=== PATIENT | female | born 1975 | race Caucasian/White ===

== ENCOUNTER 2016-05-28 20:53 | Emergency (ER) | payer BC, MEDICARE ==
[~2016-05-28] VITALS: Ht 177.8 cm; Wt 72.1 kg
[~2016-05-28 20:53] MED LIST: CYCL-375 PO; DESV50TA; FLUT16SP2 EA NOSTRIL; GLIM4TAB PO; LORA-204 PO; METF-462 PO; METO-230 PO; METO-277 PO; OXYC-426; OXYC1TAB13 PO; PROM25SU58; ROSU10TA PO
--- OUTSIDE RECORDS SUMMARY | 2016-05-28 20:56 | XMS REPORT | Summary of Care ---
Author Author Teresa Lowery Organization Unknown Address [address] [place], [place] [id number] Phone Unavailable Care Team Providers Care Machine Bander And Cellophaner Helper Name Role Phone Teresa Lowery Unavailable Unavailable Perri Read Unavailable Unavailable Unavailable Unavailable Functional Status Name Dates Details Functional status health issues are not documented Status: Name Dates Details Cognitive status health issues are not documented Status: Problems Name Dates Details Difficulty breathing (786.09, R06.89) Status: Active Polycystic ovarian syndrome (256.4, E28.2) Status: Active Type 2 diabetes mellitus (250.00, E11.9) Status: Active Allergic rhinitis (477.9, J30.9) Status: Active Asthma (493.90, J45.909) Status: Active Hypertension (401.9, I10) Status: Active Depression (311, F32.9) Status: Active Anxiety (300.00, F41.9) Status: Active Menorrhagia (626.2, N92.0) Status: Active Medications Name Dates Details Ativan 1 MG Oral Tablet 1-2 tablets every 8 hours prn anxiety * Start 09-May-2009 Active PriLOSEC 20 MG Oral Capsule Delayed Release * Refills: 0 Kempke, Teresa * Start 07-Feb-2016 Active Percocet 10-325 MG Oral Tablet * Refills: 0 KempkeTeresa * Start 07-Feb-2016 Active Butrans 15 MCG/HR Transdermal Patch Weekly * Refills: 0 Kempke, Teresa * Start 07-Feb-2016 Active CeleXA 10 MG Oral Tablet * Refills: 0 KempkeTeresa * Start 07-Feb-2016 Active Allergies and Adverse Reactions Name Dates Details Aspirin TABS (Allergy) Status: Active Lortab TABS (Allergy) Status: Active Past Medical History Name Dates Details History of migraine (V12.49, Z86.69) Status: Resolved History of vaginal delivery (V13.29) Status: Resolved Procedures Procedure Dates Details History of Appendectomy History of Tubal Ligation History of Section History of Back Surgery History of Gastroduodenostomy OB Dept- Ultrasound Pelvic Sonogram Ordered: 08-Feb-2016 Immunization Name Dates Details Immunizations not documented Family History Name Dates Details Family history of hypertension (V17.49, Z82.49) Comments: Family History Status: Active Family history of Endometrial cancer (182.0, C54.1) Comments: Family History Status: Active Name Dates Details Family history of cerebrovascular accident (CVA) (V17.1, Z82.3) Status: Active Family history of hypertension (V17.49, Z82.49) Status: Active Name Dates Details Family history of blood clots (V18.3, Z82.49) Status: Active Social History Name Dates Details - Status: Name Dates Details Former smoker Never smoker Vital Signs Date Test Result Details 21-Feb-2016 11:42 BP Systolic 124 mm[Hg] Status: Comments: Location: ; Position: BP Diastolic 70 mm[Hg] Status: Comments: Location: ; Position: Weight 159 lb Status: Body Mass Index Calculated 22.98 kg/m2 Status: Body Surface Area Calculated 1.89 m2 Status: 07-Feb-2016 15:30 BP Systolic 120 mm[Hg] Status: Comments: Location: ; Position: BP Diastolic 62 mm[Hg] Status: Comments: Location: ; Position: Height 69.75 in Status: Weight 163 lb Status: Body Mass Index Calculated 23.56 kg/m2 Status: Body Surface Area Calculated 1.91 m2 Status: Results Date Description Value Details 21-Feb-2016 11:50 URINE TEST 8010 URINE TEST Negative Range: Negative Comments: Internal Control: Acceptable----- 12:38 OB Dept- Ultrasound Endovag Pelvic Sonogram Comments: Exam Date: 02/20 10:28Dictation Date: 02/21/2016 12:38 XOB EV SONO Plan of Care Name Dates Details Planned Observations Planned Goals not documented Instructions Name Dates Details Instructions not documented Encounters Appointment; Teresa Lowery Encounter Diagnosis: Problem not documented On 21-Feb-2016 11:00 Appointment; Teresa Lowery Encounter Diagnosis: Problem not documented On 07-Feb-2016 14:00
--- OUTSIDE RECORDS SUMMARY | 2016-05-28 20:56 | XMS REPORT | Summary of Care ---
Author Author Teresa Lowery Organization Unknown Address [address] [place], [place] [id number] Phone Unavailable Care Team Providers Care Mis Specialist Name Role Phone Teresa Lowery Unavailable Unavailable [...]
--- OUTSIDE RECORDS SUMMARY | 2016-05-28 20:56 | XMS REPORT | Summary of Care ---
Author Author [facility] Organization [facility] Address [address] [place] [address] Phone Care Team Providers Care Social Security Specialist Name Role Phone [employer] CNM, User Unavailable Unavailable Teresa Lowery Unavailable Unavailable Slechta, Perri Unavailable Unavailable Unavailable Unavailable Functional Status Name [...] 10-325 MG Oral Tablet * Refills: 0 Kempke, Teresa * Start 07-Feb-2016 Active Butrans 15 MCG/HR Transdermal Patch Weekly * Refills: 0 Kempke, Teresa * Start 07-Feb-2016 Active CeleXA 10 MG Oral Tablet * Refills: 0 KempkeLanceTeresa * Start 07-Feb-2016 Active Allergies and Adverse Reactions Name Dates Details Aspirin TABS (Allergy) Status: Active Lortab TABS (Allergy) Status: Active Past Medical History Name Dates Details History of migraine (V12.49, Z86.69) Status: Resolved History of vaginal delivery (V13.29) Status: Resolved Procedures Procedure Dates Details History of Appendectomy History of Tubal Ligation History of Section History of Back Surgery History of Gastroduodenostomy URINE TEST 8010 Ordered: 14-Feb-2016 OB Dept- Ultrasound Pelvic Sonogram Ordered: 08-Feb-2016 [...] smoker Vital Signs Date Test Result Details 07-Feb-2016 15:30 BP Systolic 120 mm[Hg] Status: Comments: Location: ; Position: BP Diastolic 62 mm[Hg] Status: Comments: Location: ; Position: Height 69.75 in Status: Weight 163 lb Status: Body Mass Index Calculated 23.56 kg/m2 Status: Body Surface Area Calculated 1.91 m2 Status: Results Date Description Value Details Results not documented Plan of Care Name Dates Details Planned Observations Planned Goals not documented Planned Encounters Appointment; Provider: Teresa Lowery On 21-Feb-2016 11:00 Instructions Name Dates Details Instructions not documented Encounters Appointment; Teresa Lowery Encounter Diagnosis: Problem not documented On 07-Feb-2016 14:00
--- OUTSIDE RECORDS SUMMARY | 2016-05-28 20:56 | XMS REPORT | Summary of Care ---
Author Author Teresa Lowery Organization Unknown Address [address] [place], [place] [id number] Phone Unavailable Care Team Providers Care Transportation Maintenance Operator Name Role Phone Teresa Lowery Unavailable Unavailable [...] Status: Active Anxiety (300.00, F41.9) Status: Active Screening for breast cancer (V76.10, Z12.39) Status: Active Menorrhagia (626.2, N92.0) Status: Active Medications Name Dates Details Ativan 1 MG Oral Tablet 1-2 tablets every 8 hours prn anxiety * Start 09-May-2009 Active PriLOSEC 20 MG CPDR * Refills: 0 Teresa Lowery * Start 07-Feb-2016 Active Percocet 10-325 MG Oral Tablet * Refills: 0 Teresa Lowery * Start 07-Feb-2016 Active Butrans 15 MCG/HR Transdermal Patch Weekly * Refills: 0 Teresa Lowery * Start 07-Feb-2016 Active CeleXA 10 MG Oral Tablet * Refills: 0 Teresa Lowery * Start 07-Feb-2016 Active Tylenol with Codeine #3 300-30 MG Oral Tablet TAKE 1 TO 2 TABLETS EVERY [address] PAIN. [address] Lowery * Quantity: 30 Refills: 0 * Start 22-Mar-2016 Active Allergies and Adverse Reactions Name Dates [...] OB Dept- Ultrasound Pelvic Sonogram Ordered: 08-Feb-2016 MAMMOGRAM-SCREENING Ordered: 08-Mar-2016 Immunization Name Dates Details Immunizations not documented [...] smoker Vital Signs Date Test Result Details 05-Apr-2016 09:23 BP Systolic 124 mm[Hg] Status: Comments: Location: ; Position: BP Diastolic 80 mm[Hg] Status: Comments: Location: ; Position: Heart Rate 68 /min Status: Comments: Location: ; Weight 156 lb Status: Body Mass Index Calculated 22.55 kg/m2 Status: Body Surface Area Calculated 1.87 m2 Status: 13-Mar-2016 10:24 BP Systolic 112 mm[Hg] Status: Comments: Location: ; Position: BP Diastolic 68 mm[Hg] Status: Comments: Location: ; Position: Heart Rate 74 /min Status: Comments: Location: ; Weight 157 lb Status: Body Mass Index Calculated 22.69 kg/m2 Status: Body Surface Area Calculated 1.88 m2 Status: Results Date Description Value Details Results not documented Plan of Care Name Dates Details Planned Observations Planned Goals not documented Planned Encounters Appointment; Provider: Teresa Lowery On 01-May-2016 13:00 Appointment; Provider: Schedule Radiology On 05-Apr-2016 10:50 Instructions Name Dates Details Instructions not documented Encounters Appointment; Teresa Lowery Encounter Diagnosis: Problem not documented On 22-Mar-2016 07:00 Appointment; Teresa Lowery Encounter Diagnosis: Problem not documented On 13-Mar-2016 10:15 Appointment; Tersea Lowery Encounter Diagnosis: Problem not documented On 21-Feb-2016 11:00 Appointment; Teresa Lowery Encounter Diagnosis: Problem not documented On 07-Feb-2016 14:00
--- OUTSIDE RECORDS SUMMARY | 2016-05-28 20:56 | XMS REPORT | Continuity of Care Document ---
Demographics Preferred Language Unknown Marital Status Unknown Confucianist Affiliation Unknown Race Unknown Ethnic Group Unknown Author Author [facility] Organization [facility] Address Unknown Phone Unavailable Allergies Medications Problems Procedures Results Encounters ACCT No. Visit Date/Time Discharge Status Pt. Type Provider Facility Loc./Unit Complaint [id number] 10/19/2013 10:37:00 ACT Unknown [id number] 06/29/2013 08:16:00 ACT Unknown [id number] 03/10/2013 10:16:00 ACT Unknown [id number] 02/27/2013 09:34:00 ACT Unknown [id number] 02/02/2013 10:08:00 ACT Unknown
--- OUTSIDE RECORDS SUMMARY | 2016-05-28 20:57 | XMS REPORT | Referral Summary ---
Author Author [facility] Organization [facility] Address Unknown Phone Unavailable Care Team Providers Care Architectural Associate Name Role Phone No PCP, Pt States Primary Care Physician [phone] Encounter VC Date(s): 04/28/15 - 04/28/15 [facility] [address] [place], [place] [address] Discharge Disposition: 01-Home or Self Care Attending Physician: Carter Couch MD Vital Signs No data available for this section Problem List Condition Effective Dates Status Health Status Informant Asthma(Confirmed) Active patient Chronic back Active patient pain(Confirmed) Diabetes(Confirmed) Active patient Heartburn(Confirmed) Active patient Obesity(Confirmed) Active patient Pneumonia(Confirmed) Active patient Tachycardia(Confirme Active patient d) Allergies, Adverse Reactions, Alerts Substance Reaction Severity Status aspirin1 Vomiting and nausea Severe Active HYDROcodone2 Migraines Severe Active Symbicort Throat swelling Severe Active 1N/V, BLOODY STOOLS 2ABLE TO TAKE ACETAMINOPHEN WITHOUT MIGRAINES. Medications albuterol 90 mcg/inh inhalation powder 2 puffs, Inhalation, q4hr, Shortness of Breath/Wheezing, 0 Refill(s) Start Date: 04/28/15 Status: Ordered Amaryl 4 mg oral tablet 4 mg 1 tabs, Oral, BID, 0 Refill(s) Start Date: 04/28/15 Status: Ordered CeleXA 20 mg oral tablet 20 mg 1 tabs, Oral, Daily, 0 Refill(s) Start Date: 04/28/15 Status: Ordered metFORMIN 500 mg oral tablet 500 mg 1 tabs, Oral, BID, 0 Refill(s) Start Date: 04/28/15 Status: Ordered metoprolol succinate 50 mg oral tablet, extended release 50 mg 1 tabs, Oral, Daily, TAKES AFTER SUPPER MEAL, 0 Refill(s) Start Date: 04/28/15 Status: Ordered Percocet 10/325 oral tablet 1 tabs, Oral, TID, as needed for pain, # 10 tabs, 0 Refill(s) Start Date: 04/28/15 Status: Ordered PriLOSEC 20 mg oral delayed release capsule 20 mg 1 caps, Oral, Daily, 0 Refill(s) Start Date: 04/28/15 Status: Ordered Zocor 20 mg oral tablet 20 mg 1 tabs, Oral, Bedtime (once a day), 0 Refill(s) Start Date: 04/28/15 Status: Ordered Results Hematology Most recent to 1 oldest [Reference Range]: WBC [4.8-10.8 8.7 10*3/uL 10*3/uL] (04/28/15 2:27 PM) RBC [4.00-5.20] 4.81 (04/28/15 2:27 PM) Hgb [12.0-16.0 13.9 gm/dL gm/dL] (04/28/15 2:27 PM) Hct [37.0-47.0 %] 41.8 % (04/28/15 2:27 PM) MCV [82.0-99.0 fL] 86.9 fL (04/28/15 2:27 PM) MCH [27.0-32.0 pg] 28.9 pg (04/28/15 2:27 PM) MCHC [32.0-36.0 33.3 gm/dL gm/dL] (04/28/15 2:27 PM) RDW [11.5-14.5 %] 13.0 % (04/28/15 2:27 PM) Platelet [150-400 291 10*3/uL 10*3/uL] (04/28/15 2:27 PM) MPV [9.4-12.4 fL] 9.6 fL (04/28/15 2:27 PM) Immature 0.2 % Granulocytes (04/28/15 2:27 PM) [0.0-1.0 %] Neutrophils [51-75 50 % %] *LOW* (04/28/15 2:27 PM) Lymphocytes [20-46 42 % %] (04/28/15 2:27 PM) Monocytes [4-11 %] 7 % (04/28/15 2:27 PM) Eosinophils [0-4 %] 1 % (04/28/15 2:27 PM) Basophils [0-2 %] 0 % (04/28/15 2:27 PM) Neutro Absolute 4.33 10*3 [1.90-7.00 10*3] (04/28/15 2:27 PM) Lymph Absolute 3.63 10*3 [0.80-3.30 10*3] *HI* (04/28/15 2:27 PM) Coffee Absolute 0.60 10*3 [0.30-1.00 10*3] (04/28/15 2:27 PM) Eos Absolute 0.09 10*3 [0.00-0.50 10*3] (04/28/15 2:27 PM) Baso Absolute 0.01 10*3 [0.00-0.20 10*3] (04/28/15 2:27 PM) Chemistry Most recent to 1 oldest [Reference Range]: Sodium Lvl [136-144 136 mEq/L mEq/L] (04/28/15 2:27 PM) Potassium Lvl 3.9 mEq/L [3.6-5.1 mEq/L] (04/28/15 2:27 PM) Chloride [99-109 101 mEq/L mEq/L] (04/28/15 2:27 PM) CO2 [22-32 mEq/L] 26 mEq/L (04/28/15 2:27 PM) AGAP [3-20] 9 (04/28/15 2:27 PM) BUN [4-20 mg/dL] 10 mg/dL (04/28/15 2:27 PM) Glucose Lvl [70-100 78 mg/dL mg/dL] (04/28/15 2:27 PM) Creatinine Lvl 0.65 mg/dL [0.44-1.03 mg/dL] (04/28/15 2:27 PM) eGFR [>60] >60 1 (04/28/15 2:27 PM) Calcium Lvl 9.9 mg/dL [8.6-10.0 mg/dL] (04/28/15 2:27 PM) Albumin Lvl [3.5-4.8 4.6 gm/dL gm/dL] (04/28/15 2:27 PM) Total Protein 7.4 gm/dL [6.1-7.9 gm/dL] (04/28/15 2:27 PM) Globulin [1.9-4.3 2.8 gm/dL gm/dL] (04/28/15 2:27 PM) ALT [14-54 U/L] 49 U/L (04/28/15 2:27 PM) AST [15-41 U/L] 32 U/L (04/28/15 2:27 PM) Alk Phos [26-104 66 U/L U/L] (04/28/15 2:27 PM) Bili Total [0.2-1.2 0.5 mg/dL 2 mg/dL] (04/28/15 2:27 PM) U Beta hCG Ql Negative (04/28/15 2:27 PM) 1Result Comment: Multiply eGFR results by 1.21 for race. 2Result Comment: Naproxen, specifically the metabolite O-desmethylnaproxen, may cause spurious elevation in Total Bilirubin levels. Immunizations No data available for this section Procedures Procedure Date Related Diagnosis Body Site Collection of venous blood by venipuncture 04/28/15 Appendectomy C SECTION Cervical fusion syndrome Laryngoscopy LUMBAR FUSION Tubal ligation Social History Social History Type Response Smoking Status Former smoker Assessment and Plan No data available for this section
--- OUTSIDE RECORDS SUMMARY | 2016-05-28 20:57 | XMS REPORT | Summary of Care ---
Author Author Teresa Lowery Organization Unknown Address [address] [place], [place] [id number] Phone Unavailable Care Team Providers Care Pari Mutuel Clerk Name Role Phone Teresa Lowery Unavailable Unavailable [...] Status: Active Menorrhagia (626.2, N92.0) Status: Active Preoperative exam for gynecologic surgery (V72.83, Z01.818) Status: Active Screening for breast cancer (V76.10, Z12.39) Status: Active Medications Name Dates Details Ativan 1 MG Oral Tablet 1-2 tablets every 8 hours prn anxiety * Start 09-May-2009 Active PriLOSEC 20 MG CPDR * Refills: 0 Teresa Lowery * Start 07-Feb-2016 Active Percocet 10-325 MG Oral Tablet * Refills: 0 KempkeLanceTeresa * Start 07-Feb-2016 Active Butrans 15 MCG/HR Transdermal Patch Weekly * Refills: 0 Teresa Lowery * Start 07-Feb-2016 Active CeleXA 10 MG Oral Tablet * Refills: 0 Teresa Lowery * Start 07-Feb-2016 Active Allergies and Adverse Reactions Name Dates Details Aspirin TABS (Allergy) Status: Active Lortab TABS (Allergy) Status: Active Past Medical History Name Dates Details History of migraine (V12.49, Z86.69) Status: Resolved History of vaginal delivery (V13.29) Status: Resolved Procedures Procedure Dates Details History of Appendectomy History of Tubal Ligation History of Section History of Back Surgery History of Gastroduodenostomy MAMMOGRAM-SCREENING Ordered: 08-Mar-2016 OB Dept- Ultrasound Pelvic Sonogram Ordered: 08-Feb-2016 [...] Goals not documented Planned Encounters Appointment; Provider: Schedule Radiology On 05-Apr-2016 10:50 Appointment; Provider: Teresa Lowery On 05-Apr-2016 09:00 Appointment; Provider: Teresa Lowery On 22-Mar-2016 07:00 Appointment; Provider: Teresa Lowery On 13-Mar-2016 10:15 Instructions Name Dates Details Instructions not documented Encounters Appointment; Teresa Lowery Encounter Diagnosis: Problem not documented On 21-Feb-2016 11:00 Appointment; Teresa Lowery Encounter Diagnosis: Problem not documented On 07-Feb-2016 14:00
--- OUTSIDE RECORDS SUMMARY | 2016-05-28 20:57 | XMS REPORT | Referral Summary ---
Author Author [facility] Organization [facility] Address Unknown Phone Unavailable Care Team Providers Care Solution Make Up Operator Name Role Phone No PCP, States Primary Care Physician [phone] Encounter VC Date(s): 05/02/15 - 05/03/15 [facility] [address] [place] [address] Discharge Diagnosis: Morbid obesity Discharge Disposition: 01-Home or Self Care Attending Physician: Carter Couch MD Admitting Physician: Carter Couch MD Vital Signs Most recent to 1 oldest [Reference Range]: Temperature Oral 36.7 degC [35.8-37.3 degC] (05/03/15 12:30 PM) Temperature Skin 36.2 degC [36-37 degC] (05/02/15 9:15 AM) Temperature Temporal 36.2 degC Artery [36.3-37.8 *LOW* degC] (05/02/15 12:55 PM) Peripheral Pulse 67 bpm Rate [60-100 bpm] (05/03/15 12:30 PM) Heart Rate Monitored 57 bpm [60-100 bpm] *LOW* (05/02/15 1:45 PM) Respiratory Rate 18 br/min [14-20 br/min] (05/03/15 12:30 PM) Blood Pressure 108/69 mmHg [90-140/60-90 mmHg] (05/03/15 12:30 PM) Mean Arterial 86 mmHg Pressure, Cuff (05/02/15 1:45 PM) SpO2 94 % (05/03/15 1:59 PM) Problem List Condition Effective Dates Status Health Status Informant Acute Active pain(Confirmed) Asthma(Confirmed) Active patient Chronic back Active patient pain(Confirmed) Diabetes(Confirmed) Active patient Heartburn(Confirmed) Active patient Impaired skin Active integrity(Confirmed) 1 Obesity(Confirmed) Active patient Pneumonia(Confirmed) Active patient Tachycardia(Confirme Active patient d) 1Problem added automatically by system based on initiation of Impaired Skin Integrity Plan of Care Allergies, Adverse Reactions, Alerts Substance Reaction Severity [...] 0 Refill(s) Start Date: 04/28/15 Status: Ordered omeprazole 2 mg/mL oral suspension 20 mg, Oral, Daily, # 300 mL, 3 Refill(s), 20mg per day for indefinite time period. Start Date: 05/03/15 Status: Ordered PriLOSEC 20 mg oral delayed release capsule 20 mg 1 caps, Oral, Daily, # 30 caps, 3 Refill(s) Start Date: 05/03/15 Status: Ordered Zocor 20 mg oral tablet 20 mg 1 tabs, Oral, Bedtime (once a day), 0 Refill(s) Start Date: 04/28/15 Status: Ordered Results Hematology Most recent to 1 oldest [Reference Range]: WBC [4.8-10.8 9.8 10*3/uL 10*3/uL] (05/03/15 5:37 AM) RBC [4.00-5.20] 4.24 (05/03/15 5:37 AM) Hgb [12.0-16.0 11.8 gm/dL gm/dL] *LOW* (05/03/15 5:37 AM) Hct [37.0-47.0 %] 36.6 % *LOW* (05/03/15 5:37 AM) MCV [82.0-99.0 fL] 86.3 fL (05/03/15 5:37 AM) MCH [27.0-32.0 pg] 27.8 pg (05/03/15 5:37 AM) MCHC [32.0-36.0 32.2 gm/dL gm/dL] (05/03/15 5:37 AM) RDW [11.5-14.5 %] 12.9 % (05/03/15 5:37 AM) Platelet [150-400 215 10*3/uL 10*3/uL] (05/03/15 5:37 AM) MPV [9.4-12.4 fL] 9.7 fL (05/03/15 5:37 AM) Chemistry Most recent to 1 oldest [Reference Range]: Sodium Lvl [136-144 134 mEq/L mEq/L] *LOW* (05/03/15:37 AM) Potassium Lvl 3.5 mEq/L [3.6-5.1 mEq/L] *LOW* (05/03/15 5:37 AM) Chloride [99-109 100 mEq/L mEq/L] (05/03/15 5:37 AM) CO2 [22-32 mEq/L] 26 mEq/L (05/03/15 5:37 AM) AGAP [3-20] 8 (05/03/15 5:37 AM) BUN [4-20 mg/dL] 4 mg/dL (05/03/15 5:37 AM) Glucose Lvl [70-100 121 mg/dL mg/dL] *HI* (05/03/15 5:37 AM) Creatinine Lvl 0.78 mg/dL [0.44-1.03 mg/dL] (05/03/15 5:37 AM) eGFR [>60] >60 1 (05/03/15:37 AM) Calcium Lvl 8.8 mg/dL [8.6-10.0 mg/dL] (05/03/15 5:37 AM) Albumin Lvl [3.5-4.8 3.8 gm/dL gm/dL] (05/03/15 5:37 AM) Magnesium Lvl 1.7 mg/dL [1.8-2.5 mg/dL] *LOW* (05/03/15 5:37 AM) Phosphorus [2.4-4.7 3.5 mg/dL 2 mg/dL] (05/03/15 5:37 AM) Blood Glucose, 100 mg/dL Capillary [70-100 (05/03/15 12:33 PM) mg/dL] 1Result Comment: Multiply eGFR results by 1.21 for race. 2Result Comment: High dosages of liposomal Amphotericin B (AmBisome) therapy or other drug preparations that use a liposomal envelope to facilitate drug delivery may cause falsely elevated results for phosphorus. Blood Bank Results Most recent to 1 oldest [Reference Range]: ABO/Rh A POS (05/02/15 9:22 AM) Antibody Screen Tube NEG (05/02/15 9:22 AM) Immunizations No data available for this section Procedures Procedure Date Related Diagnosis Body Site Bypass Gastric Laparoscopic1 05/02/15 Appendectomy C SECTION Cervical fusion syndrome Laryngoscopy LUMBAR FUSION Tubal ligation 1auto-populated from documented surgical case Social History Social History Type Response Smoking Status Former smoker Assessment and Plan No data available for this section
--- OUTSIDE RECORDS SUMMARY | 2016-05-28 20:57 | XMS REPORT | Continuity of Care Document ---
Author Author [facility] Organization [facility] Address Unknown Phone Unavailable Support Name Relationship Address Phone ISABELLE VO MD Caregiver [facility] [address] [place] [address] Unavailable SUSANNAH ORTIZ DO Caregiver [address] [place], [place] [phone] JEFFREY ANTOINE Next Of Kin [address] [place] [address] Insurance Providers Payer Name Policy Number Subscriber Name Relationship [facility] [id number] Jeffrey Antoine 01 Spouse Advance Directives Directive Response Recorded Date/Time Advanced Directives Type None 02/15/14 1:16am Problems Medical Problems Problem Onset Date Status Gastritis Unknown Active Abdominal pain Unknown Active Gastritis Unknown Active Medications Medication Dose Route Sig Days/Qty Instructions Order Date Discontinued Date Status Rosuvastatin Calcium 10 Mg PO BEDTIME Take 1 tablet, by mouth, one time a day at bedtime. 02/15/14 Active Oxycodone HCl/Acetaminophen 10 Mg PO THREE TIMES A DAY 02/15/14 Active Desvenlafaxine Succinate 02/15/14 Active Cyclobenzaprine HCl 1 Tab PO THREE TIMES A DAY 02/15/14 Active Oxycodone HCl 02/15/14 Active Metformin HCl 500 Mg PO GIVE WITH BREAKFAST Take 1 tablet, by mouth, one time a day (with breakfast). 02/15/14 Active Glimepiride 1 Tab PO GIVE WITH BREAKFAST 02/15/14 Active Metoprolol Succinate 50 Mg PO DAILY 02/15/14 Active Promethazine HCl 02/15/14 Active Fluticasone Propionate 2 [place] EA NOSTRIL NEEDED 02/15/14 Active Lorazepam 1 Mg PO NEEDED 02/15/14 Active Metoclopramide HCl 10 Mg PO Q6H/0300,0900,1500,2100 PRN NAUSEA &/OR VOMITING 30 Qty 02/15/14 Active Social History Social History Problem Response Recorded Date/Time Hx Alcohol Use Y OCCASIONAL WINE 02/15/2014 1:30am Query Response Start Date Stop Date Smoking Status Former smoker Hospital Discharge Instructions No hospital discharge instructions. Plan of Care No plan of care. Functional Status Query Response Date Recorded Physical Hygiene Self February 15, 2014 1:30am Disabilities None February 15, 2014 1:30am Devices Used None February 15, 2014 1:30am Dressing Self February 15, 2014 1:30am Ambulation Self February 15, 2014 1:30am Diet Self February 15, 2014 1:30am Mental Status Alert February 15, 2014 3:28am Disabilities None February 15, 2014 1:30am Devices Used None February 15, 2014 1:30am Physical Hygiene Self February 15, 2014 1:30am Dressing Self February 15, 2014 1:30am Ambulation Self February 15, 2014 1:30am Diet Self February 15, 2014 1:30am Allergies, Adverse Reactions, Alerts Allergen Type Severity Reaction Status Last Updated Aspirin Allergy Unknown Active 10/29/07 Budesonide Adverse Reaction Severe Active 02/15/14 Formoterol Adverse Reaction Severe Active 02/15/14 LORATAB Adverse Reaction Intermediate Active 02/15/14 Immunizations Name Given Type Hx Influenza Vaccination No Historical Hx Pneumococcal Vaccination Y 2008 Historical Hx Tetanus, Diptheria, Pertussis Y UNKNOWN Historical Hx Influenza Vaccination No Historical Hx Tetanus, Diptheria, Pertussis Y UNKNOWN Historical Vital Signs Acute Vital Signs Vital Response Date/Time Temperature (Fahrenheit) 98.0 deg F (96.8 - 99.1) Temperature (Calculated Celsius) 36.81173 degrees C (36.0 - 37.3) Pulse Rate (adult) 99 bpm (60 - 100) Respiratory Rate 18 breaths/min (10 - 20) O2 Sat by Pulse Oximetry 95 % (90 - 100) Blood Pressure 130/73 mm Hg Height 5 ft 9 in Weight 227 lb Body Mass Index 33.0 kg/m^2 Results Test Source Date Result Interp. Ref. Range Comments Lipase February 15, 2014 2:10am 72 U/L N 23-300 Alanine Aminotransferase (ALT/SGPT) February 15, 2014 2:10am 39 U/L N 9- 52 Aspartate Amino Transf (AST/SGOT) February 15, 2014 2:10am 39 U/L H 14- 36 Albumin/Globulin Ratio February 15, 2014 2:10am 1.5 RATIO N 1.1-2.2 Globulin February 15, 2014 2:10am 3.1 G/DL N 2.4-3.6 Albumin February 15, 2014 2:10am 4.8 G/DL N 3.5-5.0 Total Protein February 15, 2014 2:10am 7.9 G/DL N 6.3-8.2 Alkaline Phosphatase February 15, 2014 2:10am 98 U/L N 38-126 Conjugated Bilirubin February 15, 2014 2:10am 0.00 MG/DL N 0.00-0.30 Unconjugated Bilirubin February 15, 2014 2:10am 0.70 MG/DL N 0.00-1.10 Total Bilirubin February 15, 2014 2:10am 1.00 MG/DL N 0.20-1.30 Calcium Level February 15, 2014 2:10am 9.8 MG/DL N 8.4-10.2 Calculated Osmolality February 15, 2014 2:10am 275 MOSM/KG N 261-280 Glucose Level February 15, 2014 2:10am 160 MG/DL H 65-110 Glomerular Filtration Rate Calc February 15, 2014 2:10am 111 - BUN/Creatinine Ratio February 15, 2014 2:10am 23 RATIO N 6-26 Creatinine February 15, 2014 2:10am 0.6 MG/DL L 0.7-1.2 Blood Urea Nitrogen February 15, 2014 2:10am 14.0 MG/DL N 7-17 Anion Gap February 15, 2014 2:10am 19 MEQ/L H 5-15 Carbon Dioxide Level February 15, 2014 2:10am 24 MEQ/L N 22-30 Chloride Level February 15, 2014 2:10am 98 MEQ/L N 98-107 Potassium Level February 15, 2014 2:10am 4.3 MEQ/L N 3.6-5 Sodium Level February 15, 2014 2:10am 141 MEQ/L N 134-144 Turbidity February 15, 2014 2:10am < 20 0-20 Chemistry Specimen Hemolysis February 15, 2014 2:10am < 15 0-25 0-25 : No Hemolysis.26-70: Slight Hemolysis - can falsely elevate K and Urine Protein. 71-285: Moderate Hemolysis - can falsely elevate K, Troponin I, CA 19-9, PTH, CSF GLucose, and Urine Protein, and can falsely decrease Phenytoin. 286-999: Gross Hemolysis - can falsely elevate K, Troponin I, CA 19-9, PTH, CSF Glucose, and Urine Protine, and can falsely decrease Phenytoin. Recommend specimen recollection. Icterus Index February 15, 2014 2:10am < 2 0-7 Immature Granulocyte # (Auto) February 15, 2014 2:10am 0.03 T/MM3 N 0.00 -0.03 Basophils # (Auto) February 15, 2014 2:10am 0.0 T/MM3 N 0-0.2 Eosinophils # (Auto) February 15, 2014 2:10am 0.1 T/MM3 N 0-0.5 Monocytes # (Auto) February 15, 2014 2:10am 0.5 T/MM3 N 0-0.8 Lymphocytes # (Auto) February 15, 2014 2:10am 1.0 T/MM3 N 1-4.8 Neutrophils # (Auto) February 15, 2014 2:10am 9.4 T/MM3 H 1.8-7.7 Immature Granulocyte % (Auto) February 15, 2014 2:10am 0.3 % N 0.0-0.5 Basophils (%) (Auto) February 15, 2014 2:10am 0.1 % N 0-2 Eosinophils (%) (Auto) February 15, 2014 2:10am 0.5 % N 0-4 Monocytes (%) (Auto) February 15, 2014 2:10am 4.1 % N 0-9.0 Lymphocytes (%) (Auto) February 15, 2014 2:10am 8.9 % L 23-45 Neutrophils (%) (Auto) February 15, 2014 2:10am 86.1 % H 33-66 Mean Platelet Volume February 15, 2014 2:10am 9.7 UM3 N 9.4-12.4 Platelet Count February 15, 2014 2:10am 239 T/MM3 N 130-400 RDW Standard Deviation February 15, 2014 2:10am 38.3 FL N 36.9-50.2 Mean Corpuscular Hemoglobin Concent February 15, 2014 2:10am 34.3 GM/DL N 31-37 Mean Corpuscular Hemoglobin February 15, 2014 2:10am 28.0 UUG N 26-34 Mean Corpuscular Volume February 15, 2014 2:10am 81.4 UM3 N 80-100 Hematocrit February 15, 2014 2:10am 46.0 % N 36-46 Hemoglobin February 15, 2014 2:10am 15.8 GM/DL N 12-16 Red Blood Count February 15, 2014 2:10am 5.65 M/MM3 H 4.00-5.20 White Blood Count February 15, 2014 2:10am 10.9 T/MM3 N 4.5-11.0 Urine Bacteria February 15, 2014 1:40am Trace H - Has specimen been collected/obtained? Y Urine Squamous Epithelial Cells February 15, 2014 1:40am 5-10 - Has specimen been collected/obtained? Y Urine RBC February 15, 2014 1:40am None seen /HPF - Has specimen been collected/obtained? Y Urine WBC February 15, 2014 1:40am 1-3 /HPF - Has specimen been collected/obtained? Y Urine Blood February 15, 2014 1:40am 1+ H - Has specimen been collected /obtained? Y Urine Bilirubin February 15, 2014 1:40am Negative - Has specimen been collected/obtained? Y Urine Urobilinogen February 15, 2014 1:40am 0.2 EU/DL - Has specimen been collected/obtained? Y Urine Ketones February 15, 2014 1:40am 2+ H - Has specimen been collected/obtained? Y Urine Glucose (UA) February 15, 2014 1:40am Negative - Has specimen been collected/obtained? Y Urine Protein February 15, 2014 1:40am Trace H - Has specimen been collected/obtained? Y Urine Nitrite February 15, 2014 1:40am Negative - Has specimen been collected/obtained? Y Urine Leukocyte Esterase February 15, 2014 1:40am Negative - Has specimen been collected/obtained? Y Urine pH February 15, 2014 1:40am 5.5 - Has specimen been collected/ obtained? Y Urine Specific [place] February 15, 2014 1:40am 1.025 - Has specimen been collected/obtained? Y Urine Turbidity February 15, 2014 1:40am Clear - Has specimen been collected/obtained? Y Urine Color February 15, 2014 1:40am Yellow - Has specimen been collected/obtained? Y Urine Collection Type February 15, 2014 1:40am Cleancatch-midstream - Has specimen been collected/obtained? Y Procedures No known history of procedures. Encounters Encounter Location Date/Time Registered Emergency Room [facility] 02/15/14 1:11am Recent Diagnosis
--- OUTSIDE RECORDS SUMMARY | 2016-05-28 20:57 | XMS REPORT | Summary of Care ---
Author Author Teresa Lowery Organization Unknown Address [address] [place], [place] [phone] Phone Unavailable Care Team Providers Care Facilities Maintenance Technician Name Role Phone Teresa Lowery Unavailable Unavailable [...] Medical History Name Dates Details History of History of vaginal delivery (V13.29) Status: Resolved History of migraine (V12.49, Z86.69) Status: Resolved Procedures Procedure Dates Details History of Appendectomy History of Tubal Ligation History of Section History of Back Surgery History of Gastroduodenostomy Procedures not documented Immunization Name Dates Details Immunizations not documented [...] smoker Vital Signs Date Test Result Details 08-May-2016 15:15 BP Systolic 100 mm[Hg] Status: Comments: Location: ; Position: BP Diastolic 63 mm[Hg] Status: Comments: Location: ; Position: Heart Rate 71 /min Status: Comments: Location: ; Weight 158 lb Status: Body Mass Index Calculated 22.83 kg/m2 Status: Body Surface Area Calculated 1.88 m2 Status: Results Date Description Value Details 09-Apr-2016 13:19 MAMMOGRAM-SCREENING Comments: Exam Date: 04/05/2016 09: 50Dictation Date: 04/09/2016 13:19 XM SCREENING Plan of Care Name Dates Details Planned Observations Planned Goals not documented Instructions Name Dates Details Instructions not documented Encounters Appointment; Teresa Lowery Encounter Diagnosis: Problem not documented On 05-Apr-2016 09:00 Appointment; Teresa Lowery Encounter Diagnosis: Problem not documented On 22-Mar-2016 07:00 Appointment; Teresa Lowery Encounter Diagnosis: Problem not documented On 13-Mar-2016 10:15 Appointment; Teresa Lowery Encounter Diagnosis: Problem not documented On 21-Feb-2016 11:00 Appointment; Teresa Lowery Encounter Diagnosis: Problem not documented On 07-Feb-2016 14:00
--- OUTSIDE RECORDS SUMMARY | 2016-05-28 20:57 | XMS REPORT | Summary of Care ---
Author Author Teresa Lowery Organization Unknown Address [address] [place], [place] [phone] Phone Unavailable Care Team Providers Care Floor Surfacer Name Role Phone Teresa Lowery Unavailable Unavailable [...] Status: Active Anxiety (300.00, F41.9) Status: Active Preoperative exam for gynecologic surgery [...] smoker Vital Signs Date Test Result Details 13-Mar-2016 10:24 BP Systolic 112 mm[Hg] Status: Comments: Location: ; Position: BP Diastolic 68 mm[Hg] Status: Comments: Location: ; Position: Heart Rate 74 /min Status: Weight 157 lb Status: Body Mass Index Calculated 22.69 kg/m2 Status: Body Surface Area Calculated 1.88 m2 Status: 21-Feb-2016 11:42 BP Systolic 124 mm[Hg] Status: Comments: Location: ; Position: BP Diastolic 70 mm[Hg] Status: Comments: Location: ; Position: Weight 159 lb Status: Body Mass Index Calculated 22.98 kg/m2 Status: Body Surface Area Calculated 1.89 m2 Status: Results Date Description Value Details [...] Appointment; Provider: Teresa Lowery On 22-Mar-2016 07:00 Instructions Name Dates Details Instructions not documented Encounters Appointment; Teresa Lowery Encounter Diagnosis: Problem not documented On 21-Feb-2016 11:00 Appointment; Teresa Lowery Encounter Diagnosis: Problem not documented On 07-Feb-2016 14:00
--- OUTSIDE RECORDS SUMMARY | 2016-05-28 20:57 | XMS REPORT | Summary of Care ---
Author Author Teresa Lowery Organization Unknown Address [address] [place] [phone] Phone Unavailable Care Team Providers Care Stroke Coordinator Name Role Phone Teresa Lowery Unavailable Unavailable [...] 10-325 MG Oral Tablet * Refills: 0 AntoinempkeTeresa * Start 07-Feb-2016 Active Butrans 15 MCG/HR Transdermal Patch Weekly * Refills: 0 Kempke Teresa * Start 07-Feb-2016 Active CeleXA 10 [...]
--- OUTSIDE RECORDS SUMMARY | 2016-05-28 20:57 | XMS REPORT | Summary of Care ---
Author Author Teresa Lowery Organization Unknown Address [address] [place], [place] [phone] Phone Unavailable Care Team Providers Care Consulting Services Project Manager Name Role Phone Teresa Lowery Unavailable Unavailable [...] Negative Range: Negative Comments: Internal Control: Acceptable----- Plan of Care Name Dates Details Planned Observations Planned Goals not documented Instructions Name Dates Details Instructions not documented Encounters Appointment; Teresa Lowery Encounter Diagnosis: Problem not documented On 21-Feb-2016 11:00 Appointment; Teresa Lowery Encounter Diagnosis: Problem not documented On 07-Feb-2016 14:00
--- OUTSIDE RECORDS SUMMARY | 2016-05-28 20:57 | XMS REPORT | Summary of Care ---
Author Author Teresa Lowery Organization Unknown Address [address] [place], [place] [phone] Phone Unavailable Care Team Providers Care Informatics Pharmacist Name Role Phone Teresa Lowery Unavailable Unavailable [...] Appointment; Provider: Teresa Lowery On 01-May-2016 13:00 Instructions Name Dates Details Instructions not documented [...]
[2016-05-28 20:58] VITALS: Ht 177.8 cm; Wt 72.1 kg
--- OUTSIDE RECORDS SUMMARY | 2016-05-28 20:58 | XMS REPORT | Continuity of Care Document ---
Author Author [facility] Organization [facility] Address Unknown Phone Unavailable Support Name Relationship Address Phone GURWINDER SANABRIA MD Caregiver [facility] [address] [place] [address] SUSANNAH ORTIZ DO Caregiver [address] [place] [address] [phone] JEFFREY ANTOINE Next Of Kin [address] [place] [address] Insurance Providers Payer Name Policy Number Subscriber Name Relationship [facility] [id number] Jeffrey Antoine 01 Spouse Problems Medical Problems Problem Onset Date Status [...] Promethazine HCl 02/15/14 Active Fluticasone Propionate 2 [place] EA NOSTRIL NEEDED 02/15/14 Active Lorazepam 1 Mg PO NEEDED 02/15/14 Active Metoclopramide HCl 10 Mg PO Q6H/0300,0900,1500,2100 PRN NAUSEA &/OR VOMITING 30 Qty 02/15/14 Active Social History Social History Problem Response Recorded Date/Time Hx Alcohol Use Y OCCASIONAL WINE 02/15/2014 1:30am Hospital Discharge Instructions No hospital discharge instructions. Plan of Care No plan of care. Functional Status Query Response Date Recorded Physical Hygiene Self February 15, 2014 1:30am Physical Hygiene Self February 15, 2014 1:30am Allergies, Adverse [...] Diptheria, Pertussis Y UNKNOWN Historical Vital Signs No known vital signs results. Results Test Source Date Result Interp. Ref. Range Comments Alanine Aminotransferase (ALT/SGPT) February 15, 2014 2:10am 39 U/L N 9- 52 Albumin February 15, 2014 2:10am 4.8 G/DL N 3.5-5.0 Albumin/Globulin Ratio February 15, 2014 2:10am 1.5 RATIO N 1.1-2.2 Alkaline Phosphatase February 15, 2014 2:10am 98 U/L N 38-126 Anion Gap February 15, 2014 2:10am 19 MEQ/L H 5-15 Aspartate Amino Transf (AST/SGOT) February 15, 2014 2:10am 39 U/L H 14- 36 BUN/Creatinine Ratio February 15, 2014 2:10am 23 RATIO N 6-26 Basophils # (Auto) February 15, 2014 2:10am 0.0 T/MM3 N 0-0.2 Basophils (%) (Auto) February 15, 2014 2:10am 0.1 % N 0-2 Blood Urea Nitrogen February 15, 2014 2:10am 14.0 MG/DL N 7-17 Calcium Level February 15, 2014 2:10am 9.8 MG/DL N 8.4-10.2 Calculated Osmolality February 15, 2014 2:10am 275 MOSM/KG N 261-280 Carbon Dioxide Level February 15, 2014 2:10am 24 MEQ/L N 22-30 Chloride Level February 15, 2014 2:10am 98 MEQ/L N 98-107 Conjugated Bilirubin February 15, 2014 2:10am 0.00 MG/DL N 0.00-0.30 Creatinine February 15, 2014 2:10am 0.6 MG/DL L 0.7-1.2 Eosinophils # (Auto) February 15, 2014 2:10am 0.1 T/MM3 N 0-0.5 Eosinophils (%) (Auto) February 15, 2014 2:10am 0.5 % N 0-4 Globulin February 15, 2014 2:10am 3.1 G/DL N 2.4-3.6 Glucose Level February 15, 2014 2:10am 160 MG/DL H 65-110 Hematocrit February 15, 2014 2:10am 46.0 % N 36-46 Hemoglobin February 15, 2014 2:10am 15.8 GM/DL N 12-16 Lipase February 15, 2014 2:10am 72 U/L N 23-300 Lymphocytes # (Auto) February 15, 2014 2:10am 1.0 T/MM3 N 1-4.8 Lymphocytes (%) (Auto) February 15, 2014 2:10am 8.9 % L 23-45 Mean Corpuscular Hemoglobin February 15, 2014 2:10am 28.0 UUG N 26-34 Mean Corpuscular Hemoglobin Concent February 15, 2014 2:10am 34.3 GM/DL N 31-37 Mean Corpuscular Volume February 15, 2014 2:10am 81.4 UM3 N 80-100 Mean Platelet Volume February 15, 2014 2:10am 9.7 UM3 N 9.4-12.4 Monocytes # (Auto) February 15, 2014 2:10am 0.5 T/MM3 N 0-0.8 Monocytes (%) (Auto) February 15, 2014 2:10am 4.1 % N 0-9.0 Neutrophils # (Auto) February 15, 2014 2:10am 9.4 T/MM3 H 1.8-7.7 Neutrophils (%) (Auto) February 15, 2014 2:10am 86.1 % H 33-66 Platelet Count February 15, 2014 2:10am 239 T/MM3 N 130-400 Potassium Level February 15, 2014 2:10am 4.3 MEQ/L N 3.6-5 RDW Standard Deviation February 15, 2014 2:10am 38.3 FL N 36.9-50.2 Red Blood Count February 15, 2014 2:10am 5.65 M/MM3 H 4.00-5.20 Sodium Level February 15, 2014 2:10am 141 MEQ/L N 134-144 Total Bilirubin February 15, 2014 2:10am 1.00 MG/DL N 0.20-1.30 Total Protein February 15, 2014 2:10am 7.9 G/DL N 6.3-8.2 Unconjugated Bilirubin February 15, 2014 2:10am 0.70 MG/DL N 0.00-1.10 Urine Bacteria February 15, 2014 1:40am Trace H - Has specimen been collected/obtained? Y Urine Bilirubin February 15, 2014 1:40am Negative - Has specimen been collected/obtained? Y Urine Blood February 15, 2014 1:40am 1+ H - Has specimen been collected /obtained? Y Urine Collection Type February 15, 2014 1:40am Cleancatch-midstream - Has specimen been collected/obtained? Y Urine [...] - Has specimen been collected/obtained? Y Urine Specific [place] February 15, 2014 1:40am 1.025 - Has [...] - Has specimen been collected/ obtained? Y White Blood Count February 15, 2014 2:10am 10.9 T/MM3 N 4.5-11.0 Chemistry Specimen Hemolysis February 15, 2014 2:10am [...] can falsely decrease Phenytoin. Recommend specimen recollection. Turbidity February 15, 2014 2:10am < 20 0-20 Glomerular Filtration Rate Calc February 15, 2014 2:10am 111 - Immature Granulocyte # (Auto) February 15, 2014 2:10am 0.03 T/MM3 N 0.00 -0.03 Immature Granulocyte % (Auto) February 15, 2014 2:10am 0.3 % N 0.0-0.5 Icterus Index February 15, 2014 2:10am < 2 0-7 Name: BLAYNE ANTOINE Unit #: [id number] : 1975 Sex: F Loc / Svc: JULIANN DOS: 03/31/14 Signed Report #: [id number] DIAGNOSTIC IMAGING REPORT TYPE OF EXAM: MRI CERVICAL SPINE W/WO CONTRA Dictated By: TEJINDER AMAYA MD Indication: ITS.REASON: 723.4 CERVICAL RADICULOPATHY; 724.4 LUMBOSACRAL RADICULOPATHY MRI CERVICAL SPINE W/WO CONTRA: Comparison: Cervical spine MRI dated August 11, 2010 and cervical spine radiographs dated January 03, 2011 Technique: Multiplanar multisequence MR imaging of the cervical spine was performed with and without contrast. Contrast: 10 mL Gadavist Findings: Anterior C5-C6 cervical spinal fusion. Vertebral body heights are maintained. No acute fracture or subluxation. Exam degraded by motion artifact on several sequences. Paraspinal soft tissues are unremarkable. The cervical and visualized upper thoracic spinal cord is normal in signal intensity. Segmental analysis: C2-C3: Normal C3-C4: Normal C4-C5: Minimal disk bulging without significant central canal or right foraminal stenosis. C5-C6: Fusion without significant disk herniation, central canal or neural foraminal stenosis. C6-C7: Normal C7-T1: Normal No areas of abnormal postcontrast enhancement. Impression: Anterior C5-C6 cervical fusion without evidence of significant disk herniation, central canal or neural foraminal stenosis. . Procedures Procedure Status Date Provider(s) ECHO EXAM OF ABDOMEN completed 03/17/14 CT ABD & PELV W/CONTRAST completed 03/23/14 835888"INFUSION, NORMAL SALINE SOLUTION , 250 CC" completed 03/23/14 [id number]"LOW OSMOLAR CONTRAST MATERIAL, 300-399 MG/ML IODINE C completed MRI NECK SPINE W/O & W/DYE completed 03/31/14 MRI LUMBAR SPINE W/O & W/DYE completed 03/31/14 GADAVIST 10ML SDV - Contrast,Gadavist 10ml completed 03/31/14 Encounters Encounter Location Date/Time Discharged [facility] 04/08/14 3:41pm Registered Clinic [facility] 03/31/14 3:31pm Registered Clinic [facility] 03/23/14 9:20am Registered [facility] 03/17/14 7:35am
--- OUTSIDE RECORDS SUMMARY | 2016-05-28 20:58 | XMS REPORT | Referral Summary ---
Author Author [facility] Organization [facility] Address Unknown Phone Unavailable Encounter [facility] [id number] Date(s): 02/06/16 - 02/06/[address] [facility] [address] [facility] [address] [place], [place] [address] Discharge Diagnosis: CTS (carpal tunnel syndrome) Discharge Diagnosis: Cervical radiculopathy Discharge Disposition: 01-Home or Self Care Attending Physician: Jagdeep Cox MD Admitting Physician: Jagdeep Cox MD Referring Physician: Rohini Solomon MD Vital Signs No data available for this section Problem List Condition Effective Dates Status Health Status Informant Cervical Active radiculopathy(Confir med) CTS (carpal tunnel Active syndrome)(Confirmed) Allergies, Adverse Reactions, Alerts No data available for this section Medications No data available for this section Results No data available for this section Immunizations No data available for this section Procedures No data available for this section Social History No data available for this section Assessment and Plan Extracted from: Title: Ambulatory Patient Education Author: Jagdeep Cox MD Date: Musculoskeletal Carpal Tunnel Syndrome The carpal tunnel is a narrow area located on the palm side of your wrist. The tunnel is formed by the wrist bones and ligaments. Nerves, blood vessels, and tendons pass through the carpal tunnel. Repeated wrist motion or certain diseases may cause swelling within the tunnel. This swelling pinches the main nerve in the wrist (median nerve) and causes the painful hand and arm condition called carpal tunnel syndrome. CAUSES Repeated wrist motions. Wrist injuries. Certain diseases like arthritis, diabetes, alcoholism, hyperthyroidism, and kidney failure. Obesity. . SYMPTOMS A "pins and needles" feeling in your fingers or hand, especially in your thumb, index and middle fingers. Tingling or numbness in your fingers or hand. An aching feeling in your entire arm, especially when your wrist and elbow are bent for long periods of time. Wrist pain that goes up your arm to your shoulder. Pain that goes down into your palm or fingers. A weak feeling in your hands. DIAGNOSIS Your health care provider will take your history and perform a physical exam. An electromyography test may be needed. This test measures electrical signals sent out by your nerves into the muscles. The electrical signals are usually slowed by carpal tunnel syndrome. You may also need X-rays. TREATMENT Carpal tunnel syndrome may clear up by itself. Your health care provider may recommend a wrist splint or medicine such as a nonsteroidal anti-inflammatory medicine. Cortisone injections may help. Sometimes, surgery may be needed to free the pinched nerve. HOME CARE INSTRUCTIONS Take all medicine as directed by your health care provider. Only take [id number] or prescription medicines for pain, discomfort, or fever as directed by your health care provider. If you were given a splint to keep your wrist from bending, wear it as directed. It is important to wear the splint at night. Wear the splint for as long as you have pain or numbness in your hand, arm, or wrist. This may take 1 to 2 months. Rest your wrist from any activity that may be causing your pain. If your symptoms are work-related, you may need to talk to your employer about changing to a job that does not require using your wrist. Put ice on your wrist after long periods of wrist activity. Put ice in a plastic bag. Place a towel between your skin and the bag. Leave the ice on for 15-20 minutes, 03-04 times a day. Keep all follow-up visits as directed by your health care provider. This includes any orthopedic referrals, physical therapy, and rehabilitation. Any delay in getting necessary care could result in a delay or failure of your condition to heal. SEEK IMMEDIATE MEDICAL CARE IF: You have new, unexplained symptoms. Your symptoms get worse and are not helped or controlled with medicines. MAKE SURE YOU: Understand these instructions. Will watch your condition. Will get help right away if you are not doing well or get worse. This information is not intended to replace advice given to you by your health care provider. Make sure you discuss any questions you have with your health care provider. Document Released: 02/08/2001 Document Revised: 03/04/2015 Document Reviewed: [employer] Patient Education 2016 [employer] No follow up information was provided.
--- OUTSIDE RECORDS SUMMARY | 2016-05-28 21:08 | XMS REPORT | Continuity of Care Document ---
Demographics Preferred Language Unknown Marital Status Unknown Yazidism Affiliation Unknown Race Unknown Ethnic Group Unknown Author Author [facility] Organization [facility] Address Unknown Phone Unavailable Allergies Medications Problems Procedures Results Encounters ACCT No. Visit Date/Time Discharge Status Pt. Type Provider Facility Loc./Unit Complaint [id number] 10/19/2013 10:37:00 [facility] Unknown [id number] 06/29/2013 08:16:00 ACT Unknown [id number] 03/10/2013 10:16:00 ACT Unknown [id number] 02/27/2013 09:34:00 ACT Unknown [id number] 02/02/2013 10:08:00 ACT Unknown
--- OUTSIDE RECORDS SUMMARY | 2016-05-28 21:09 | XMS REPORT | Continuity of Care Document ---
Author Author [facility] Organization [facility] Address Unknown Phone Unavailable Support Name Relationship Address Phone ISABELLE VO MD Caregiver [facility] [address] [place] [address] Unavailable SUSANNAH ORTIZ DO Caregiver [address] [place], [place] [phone] JEFFREY ANTOINE Next Of Kin [address] [place] [address] Insurance Providers Payer Name Policy Number Subscriber Name Relationship [facility] [id number] Jeffrey Antoine 01 Spouse Advance Directives Directive [...] Promethazine HCl 02/15/14 Active Fluticasone Propionate 2 [place] EA NOSTRIL NEEDED 02/15/14 Active Lorazepam 1 [...] F (96.8 - 99.1) Temperature (Calculated Celsius) 36.44302 degrees C (36.0 - 37.3) Pulse Rate [...] specimen been collected/ obtained? Y Urine Specific [place] February 15, 2014 1:40am 1.025 - Has [...] Encounters Encounter Location Date/Time Registered Emergency Room [facility] 02/15/14 1:11am Recent Diagnosis
--- NOTE | 2016-05-28 21:10 | NUR ---
PROVIDER DR. GAMBOA IN ROOM
--- OUTSIDE RECORDS SUMMARY | 2016-05-28 21:10 | XMS REPORT | Continuity of Care Document ---
Author Author [facility] Organization [facility] Address Unknown Phone Unavailable Support Name Relationship Address Phone GURWINDER SANABRIA MD Caregiver [facility] [address] [place] [address] SUSANNAH ORTIZ DO Caregiver [address] [place] [address] [phone] JEFFREY ANTOINE Next Of Kin [address] [place] [address] Insurance Providers Payer Name Policy Number Subscriber Name Relationship [facility] [id number] Jeffrey Antoine 01 Spouse Problems Medical Problems [...] Promethazine HCl 02/15/14 Active Fluticasone Propionate 2 [place] EA NOSTRIL NEEDED 02/15/14 Active Lorazepam 1 [...] Has specimen been collected/obtained? Y Urine Specific [place] February 15, 2014 1:40am 1.025 - Has [...] 2 0-7 Name: BLAYNE ANTOINE Unit #: [id number] : 1975 Sex: F Loc / Svc: JULIANN DOS: 03/31/14 Signed Report #: [id number] DIAGNOSTIC IMAGING REPORT TYPE OF EXAM: MRI [...] CT ABD & PELV W/CONTRAST completed 03/23/14 [id number]"INFUSION, NORMAL SALINE SOLUTION , 250 CC" completed 03/23/14 [id number]"LOW OSMOLAR CONTRAST MATERIAL, 300-399 MG/ML IODINE C completed MRI NECK SPINE W/O & W/DYE completed 03/31/14 MRI LUMBAR SPINE W/O & W/DYE completed 03/31/14 GADAVIST 10ML SDV - Contrast,Gadavist 10ml completed 03/31/14 Encounters Encounter Location Date/Time Discharged [facility] 04/08/14 3:41pm Registered Clinic [facility] 03/31/14 3:31pm Registered Clinic [facility] 03/23/14 9:20am Registered [facility] 03/17/14 7:35am
[2016-05-28] MEDS ORDERED: KETOROLAC 30mg/ml INJECTION IV ONE (21:15)
[2016-05-28] MEDS ORDERED: ONDANSETRON 4mg/2ml INJECTION IV ONE (21:15)
[2016-05-28] MEDS ORDERED: NORMAL SALINE 1,000 ML IV ONE (21:15)
--- NOTE | 2016-05-28 21:22 | ERPDOC ---
Departure Disposition Decision Date: May 28, 2016 Disposition Decision Time: 22:02 Disposition: 01 DISCHARGED HOME, SELF-CARE Impression Impression Impression: Primary Impression: Cystitis Severity: Moderate Condition: Improved Seen By: Physician only Referrals: SUSANNAH ORTIZ DO (Family) 1 Week Patient Instructions: Urinary Tract Infection in Women (ED) Problems/Meds/Labs Reviewed?: Yes Medications reviewed and manag: Yes Additional Instructions: You have a bladder infection. Take the antibiotics as prescribed; you may use your antinausea medications to help with symptoms. Follow up with your doctor immediately if your symptoms are not improving; otherwise, follow up in the next week. Follow up care ordered?: Yes Mental Status: Alert, Oriented Scripts Nitrofurantoin Monohyd/M-Cryst (Macrobid 100 mg Capsule) 100 Mg Capsule 100 MG PO BID for 7 Days, #14 CAP 0 Refills Prov: JUNEJESSE DO 05/28/16 HPI - Abdominal Pain General Chief Complaint: Abdominal Pain Stated Complaint: RIGHT SIDED ABD PAIN Time Seen by Provider: 21:00 Source: patient History/Exam Limitations: no limitations HPI - Abdominal Pain Initial Comments 40yo woman presents to the ER tonight for right-sided abd pain. Pts pain started this AM, when her PM pain meds wore off. Pt was 'coming to town', so she didn't take any of her qid percocets ("I don't like the way they make me feel."). Pts pain has continued throughout the day (sharp, stabbing, with crescendo/decrescendo at intervals), and pt has not taken anything for the pain. After concluding their business, pt decided to come to the ER for evaluation. States that she often has UTI's, but they are found incidentally since her meds mask her sx. Pt's pain DrAlivia is Rohini Solomon. Takes weekly Butrans and qid percocet 5mg. K-TRACs shows no prescriptions since Apr 2015 (450mL Oxycodone 5mg/5mL), despite currently stated therapy. Occurred At: home Onset: Rapid Duration: 12-24 hrs Pain Scale: Now & Worst: 10/10 Quality: sharpness, stabbing Location: RUQ, RLQ, right flank Radiation: no radiation Activities at Onset: none Modifying Factors: IMPROVES WITH: analgesics, lying down, WORSE WITH: movement , palpation Associated Symptoms: nausea/vomiting Hx of Similar Symptoms: Yes Allergies: Coded Allergies: aspirin (Unverified Allergy, Severe, VOMITTING BLOOD AND BLOODY STOOLS, 05/28/16) formoterol (Verified Allergy, Severe, ANAPHYLAXIS, 05/28/16) hydrocodone (Verified Allergy, Intermediate, "TRIGGERS MY MIGRAINES AND CAUSES NAUSEA", 05/28/16) budesonide (Verified Adverse Reaction, Severe, ANAPHYLACTIC SHOCK, 05/28/16) Past History Patient Medical History (1) Previous back surgery (2) History of neck surgery (3) History of appendectomy (4) History of endometrial ablation (5) History of tubal ligation (6) History of gastric bypass Past Medical History Musculoskeletal: back pain, neck pain Vaccines Hx Influenza Vaccination: No Hx Pneumococcal Vaccination: Yes (2008) Hx Tetanus, Diptheria, Pertuss: Yes (UNKNOWN) Review of Systems GI Upper Abdomen: nausea, pain, DENIES: dysphagia, food intolerances, heartburn/ indigestion, hematemesis, vomiting Lower Abdomen: pain, DENIES: blood in stool, ayo-colored stools, constipation , diarrhea, melena, painful BM All other Systems All Other Systems: Reviewed and Negative Physical Exam General General Nourishment: well nourished, well developed, appears stated age, no acute distress, adult General Body Habitus: well groomed Vitals and Pain First Documented Vital Signs Date Time Temp Pulse Resp B/P Pulse Ox O2 Delivery O2 Flow Rate FiO2 05/28/16 20:58 98.0 82 12 126/61 99 Room Air Weight: Kilograms: Height (feet): 5 Height (inches): 9.00 Triage Pain Scale: RN VS reviewed by Provider: Yes Normal Exams: Head: Normocephalic w/o trauma Eyes: Pupils are PERRLA w/ EOMI, No scleral icterus, irritation ENMT: No facial trauma, nasal exudates, pharyngeal erythema Neck: Full range of motion, without adenopathy, JVD Lymphatic: No lymphadenopathy Musculoskeletal: No tenderness, or deformity noted Integumentary: No rashes, hives, or bruising noted Neurologic: Patient is alert, and oriented Psychiatric: Patient exhibits, appropriate attention Respiratory (brief) Respiratory: FOUND: clear all bell, equal bilaterally, symmetrical, NOT FOUND : rales, wheezes Cardiovascular (brief) Cardiac: FOUND: regular rate, regular rhythm, NOT FOUND: click, gallop, murmur , pedal edema, peripheral edema, rub Capillary Refill: <2 sec Pulses: all distal extremities, equal, strong Abdomen (brief) Abdominal Brief: FOUND: bowel normo active x4, soft, tender (Diffusely TTP without peritoneal signs. Pos Diaz's sign), NOT FOUND: distended, hepatosplenomegaly, pulsatile mass Differential Diagnoses Considering: Appendicitis, Biliary Colic, Cholecystitis, Constipation, Diverticulitis, Gastroenteritis, GERD, Hernia, IBS, Ileus, Pancreatitis, Pneumonia, Pyelonephritis, Renal Colic, UTI, Volvulus Progress Results/Orders Orders Procedure Category Date Status Time Iv Lock (Ed Only) EDM 05/28/16 Transmitted 21:15 Nothing By Mouth (Ed EDM 05/28/16 Transmitted Only) 21:15 Cbc W/Auto LAB 05/28/16 Complete Diff-Reflex Manual 21:15 Cmp - Comprehensive LAB 05/28/16 Complete Metabolic 21:15 Lipase LAB 05/28/16 Complete 21:15 Ct Abd/Pelvis CT 05/28/16 Logged W/Contrast Only 21:15 Normal Saline (Normal PHA 05/28/16 Complete Saline Iv) 21:15 Ondansetron Inj PHA 05/28/16 Complete (Zofran) 21:15 Ketorolac (Toradol) PHA 05/28/16 Complete 21:15 UA, LAB 05/28/16 Complete Dip&Micro(Complete) & 21:31 Urine Culture NANCY 05/28/16 In Process 21:56 Nitrofurantoin PHA 05/28/16 Complete (Perpack) (Macrobid 22:00 Lab Results Laboratory Tests Test 05/28/16 21:31 05/28/16 21:33 Urine Collection Type Cleancatch-midstream Urine Color Yellow Urine Turbidity Clear Urine pH 5.5 Urine Specific [place] 1.010 Urine Protein Negative Urine Glucose (UA) Trace Urine Ketones Negative Urine Blood 2+ Urine Nitrite Negative Urine Bilirubin Negative Urine Urobilinogen 0.2EU/DL Urine Leukocyte Esterase 2+ Urine RBC 3-5/HPF Urine WBC 20-30/HPF Urine Squamous Epithelial Cells 0-5 Urine Bacteria 2+ Urine Culture Indicated Cult reflexed &setup White Blood Count 9.4T/MM3 Red Blood Count 4.99M/MM3 Hemoglobin 13.5GM/DL Hematocrit 42.9% Mean Corpuscular Volume 86.0UM3 Mean Corpuscular Hemoglobin 27.1UUG Mean Corpuscular Hemoglobin Concent 31.5GM/DL RDW Standard Deviation 38.8FL Platelet Count 299T/MM3 Mean Platelet Volume 9.6UM3 Immature Granulocyte % (Auto) 0.1% Neutrophils (%) (Auto) 66.2% Lymphocytes (%) (Auto) 26.6% Monocytes (%) (Auto) 5.7% Eosinophils (%) (Auto) 1.2% Basophils (%) (Auto) 0.2% Absolute Immature Granulocyte (auto 0.01T/MM3 Absolute Neutrophils (auto) 6.2T/MM3 Absolute Lymphocytes (auto) 2.5T/MM3 Absolute Monocytes (auto) 0.5T/MM3 Absolute Eosinophils (auto) 0.1T/MM3 Absolute Basophils (auto) 0.0T/MM3 Turbidity < 20 Sodium Level 148MEQ/L Potassium Level 3.8MEQ/L Chloride Level 105MEQ/L Carbon Dioxide Level 29MEQ/L Anion Gap 14MEQ/L Blood Urea Nitrogen 12.0MG/DL Creatinine 0.7MG/DL Glomerular Filtration Rate Calc 92 BUN/Creatinine Ratio 17RATIO Glucose Level 65MG/DL Calculated Osmolality 282MOSM/KG Calcium Level 10.0MG/DL Total Bilirubin 0.60MG/DL Icterus Index < 2 Aspartate Amino Transf (AST/SGOT) 24U/L Alanine Aminotransferase (ALT/SGPT) 34U/L Alkaline Phosphatase 88U/L Total Protein 8.1G/DL Albumin 4.8G/DL Globulin 3.3G/DL Albumin/Globulin Ratio 1.5RATIO Lipase 91U/L Chemistry Specimen Hemolysis < 15 Medications Current ED Medications Sodium Chloride (Normal Saline IV) 1,000 ml @ 0 mls/hr Q0M ONCE IV Last administered on 05/28/16 21:37; Start 05/28/16 at 21:15; Stop 05/28/16 at 21:17; Status DC Ondansetron HCl (Zofran) 4 mg O ONCE IV Last administered on 05/28/16 21:38; Start 05/28/16 at 21:15; Stop 05/28/16 at 21:17; Status DC Ketorolac Tromethamine (Toradol) 30 mg O ONCE IV Last administered on 21:38; Start 05/28/16 at 21:15; Stop 05/28/16 at 21:17; Status DC Nitrofurantoin Macrocrystals (MACROBID (PrePack)) 1 pack O ONCE SENT HOME Last administered on 05/28/16 22:00; Start 05/28/16 at 22:00; Stop 05/28/16 at 22: 01; Status DC Progress Progress Discussed pts labs/rads/eval to this point. CT not completed at time of UA results; UA shows cystitis. Will treat for UTI. Pt voiced understanding of dx and treatment. Understands that she needs to f/u with PCM. JESSE GAMBOA DO May 28, 2016 21:22
[2016-05-28 21:48] LABS: BASOPHILS % (AUTO) 0.2 % (0-2); EOSINOPHILS # (AUTO) 0.1 T/MM3 (0-0.5); EOSINOPHILS % (AUTO) 1.2 % (0-4); HCT - HEMATOCRIT 42.9 % (36-46); HGB - HEMOGLOBIN 13.5 GM/DL (12-16); IMMATURE GRANULOCYTE # (AUTO) 0.01 T/MM3 (0.00-0.03); IMMATURE GRANULOCYTE % (AUTO) 0.1 % (0.0-0.5); LYMPHOCYTES # (AUTO) 2.5 T/MM3 (1-4.8); LYMPHOCYTES % (AUTO) 26.6 % (23-45); MEAN CORPUSCULAR HGB 27.1 UUG (26-34); MEAN CORPUSCULAR HGB CONC(MCHC 31.5 GM/DL (31-37); MEAN PLATELET VOLUME 9.6 UM3 (9.4-12.4); MONOCYTES # (AUTO) 0.5 T/MM3 (0-0.8); MONOCYTES % (AUTO) 5.7 % (0-9.0); NEUTROPHILS #(AUTO)-ABSOLUTE 6.2 T/MM3 (1.8-7.7); NEUTROPHILS % (AUTO) 66.2 % (33-66); RED BLOOD COUNT 4.99 M/MM3 (4.00-5.20); WBC - WHITE BLOOD COUNT 9.4 T/MM3 (4.5-11.0)
[2016-05-28 21:48] LABS: BLOOD, URINE 2+ (NEGATIVE); COLOR,URINE YELLOW (YELLOW); LEUKOCYTE ESTERASE ,URINE 2+ (NEGATIVE); NITRITE,URINE NEGATIVE (NEGATIVE); UROBILINOGEN,URINE 0.2 EU/DL (NORMAL)
[2016-05-28 21:55] LABS: WBC,URINE 20-30 /HPF (0-5)
[2016-05-28 21:56] LABS: BACTERIA,URINE 2+ (NEGATIVE); SQUAMOUS EPITHELIAL CELL,UR 0-5
[2016-05-28 21:58] LABS: ALBUMIN 4.8 G/DL (3.5-5.0); ALBUMIN/GLOBULIN RATIO 1.5 RATIO (1.1-2.2); ALKALINE PHOSPHATASE 88 U/L (38-126); ALT (SGPT) 34 U/L (9-52); ANION GAP 14 MEQ/L (5-15); AST (SGOT) 24 U/L (14-36); BUN/CREATININE RATIO 17 RATIO (6-26); CHLORIDE 105 MEQ/L (98-107); CO2 - CARBON DIOXIDE 29 MEQ/L (22-30); CREATININE 0.7 MG/DL (0.7-1.2); GLOMERULAR FILTRATION RATE 92; GLUCOSE 65 MG/DL (65-110); POTASSIUM 3.8 MEQ/L (3.6-5); SODIUM 148 MEQ/L (134-144); TOTAL PROTEIN 8.1 G/DL (6.3-8.2)
[2016-05-28] MEDS ORDERED: MACROBID 100mg #2 (PrePack) SENT HOME ONE (22:00)
--- NOTE | 2016-05-28 22:01 | NUR ---
PROVIDER DR. GAMBOA IN ROOM
[2016-05-28] MEDS ORDERED: NITR100C4 PO (22:04)
[2016-05-28 22:09] LABS: LIPASE 91 U/L (23-300)
[2016-05-28 22:19] VITALS: BP 127/69; PULSE 74; RESP 16; TEMP 98; O2SAT 100
== END 2016-05-28 22:19 | disposition home or self-care (01) ==
LOC: ED 20:53
DX: N30.90 Cystitis, unspecified without hematuria (principal)
CPT/HCPCS: 80053; 81001; 83690; 85025; 87086; 96361; 96374; 96375; 99284; J1885; J2405; J7030